=== PATIENT | male | born 1980 | race African-American/Black ===

== ENCOUNTER 2023-08-09 12:45 | Emergency (ER) | payer MEDICAID ==
[~2023-08-09] VITALS: Ht 175.3 cm; Wt 86.0 kg
[2023-08-09 12:54] VITALS: O2SAT 98
[2023-08-09] MEDS ORDERED: IBUP-1525 MT (14:59)
[2023-08-09] MEDS ORDERED: ALBU90AE INH (14:59)
[2023-08-09] MEDS ORDERED: TOPUD MT (14:59)
[2023-08-09] MEDS ORDERED: DEXT30SU17 MT (14:59)
[2023-08-09 15:56] VITALS: BP 115/85; PULSE 78; RESP 18; TEMP 98.7
== END 2023-08-09 15:57 | disposition home or self-care (01) ==
LOC: ER 12:45
DX: J40 Bronchitis, not specified as acute or chronic (principal); B34.9 Viral infection, unspecified; Z20.822 Contact with and (suspected) exposure to COVID-19
CPT/HCPCS: 87426; 87804; 99283

== ENCOUNTER 2023-09-15 12:27 | Emergency (ER) | payer OTHER ==
[~2023-09-15] VITALS: Ht 160 cm; Wt 87.0 kg
[~2023-09-15 12:27] MED LIST: ALBU90AE INH; DEXT30SU17 MT; IBUP-1525 MT; TOPUD MT
[2023-09-15 12:42] VITALS: O2SAT 98
[2023-09-15 13:33] LABS: BASOPHILS % 0.5 % (0.0-2.0); EOSINOPHILS % 0.9 % (0.0-5.0); HEMOGLOBIN. 12.9 g/dL (14.0-18.0); LYMPHOCYTES % 17.9 % (20.0-50.0); MEAN CORPUSCULAR HEMOGLOBIN 25.3 pg (28.0-32.0); MEAN CORPUSCULAR HGB CONC 31.6 g/dL (31.0-37.0); MEAN CORPUSCULAR VOLUME 80.1 fL (80.0-94.0); MEAN PLATELET VOLUME 8.7 fl (7.4-10.4); MONOCYTES % 11.3 % (2.0-8.0); NEUTROPHILS % 69.4 % (40.0-76.0); PLATELET 243 x1000/uL (130-400); RED BLOOD CELL COUNT 5.11 mill/uL (4.7-6.1); RED CELL DISTRIBUTION WIDTH 13.2 % (11.6-14.6); WHITE BLOOD COUNT 7.1 x1000/uL (4.5-11.0)
[2023-09-15 14:03] LABS: CALCIUM 9.2 mg/dL (8.7-10.4); CARBON DIOXIDE 31 mEq/L (21-32); CHLORIDE 105 mEq/L (98-107); CREATININE 1.1 mg/dL (0.6-1.3); GLUCOSE 80 mg/dL (70-105); POTASSIUM 4.1 mEq/L (3.5-5.1); SODIUM 140 mEq/L (136-145); UREA NITROGEN BLOOD 14 mg/dL (9-23)
[2023-09-15] MEDS: METOCLOPRAMIDE HCL 10MG/2ML VIAL IM ONE (15:28)
[2023-09-15] MEDS: ACETAMINOPHEN 325MG TABLET PO STA (15:28)
[2023-09-15] MEDS ORDERED: MECL-299 MT (16:15)
[2023-09-15] MEDS ORDERED: NAPR-681 PO (16:15)
[2023-09-15 16:19] VITALS: BP 102/74; PULSE 70; RESP 12; TEMP 97.8
== END 2023-09-15 16:25 | disposition home or self-care (01) ==
LOC: ER 12:27
DX: S16.1XXA Strain of muscle, fascia and tendon at neck level, initial encounter (principal); R51.9 Headache, unspecified; V49.9XXA Car occupant (driver) (passenger) injured in unspecified traffic accident, initial encounter; Y93.89 Activity, other specified; Y92.89 Other specified places as the place of occurrence of the external cause; Y99.8 Other external cause status
CPT/HCPCS: 80048; 85025; 36415; 70450; 72125; 96372; 99285; J2765; Z7610